=== PATIENT | male | born 1945 | race Caucasian/White ===

== ENCOUNTER 2020-02-19 13:03 | Emergency (ER) | payer MEDICARE, SELFPAY ==
--- NOTE | 2020-02-19 13:05 | ED.GENADUL_ITS ---
Discharge Plan Disposition Patient Disposition: HOME Condition: Stable Discharge Details Chief Complaint: Laceration Clinical Impression: Avulsion of skin of finger Primary Care Provider: Smitha Waite ED Provider: Tennille Courtney Home Meds and New Rx's Prescriptions: Continued levothyroxine 125 mcg tablet 125 mcg PO DAILY Qty: 90 RF: 4 simvastatin 80 mg tablet 40 mg PO QPM Qty: 45 RF: 4 Discharge Instructions Instructions: Skin Avulsion (ED) Additional Instructions: Keep wound clean and dry. Cover wound if risk of contamination. Let the skin dressing fall off naturally. Do not remove it. Follow-up with your primary care doctor in 1 week. Return to the emergency department with any worsening or new concerning symptom s. Discharge Data Discharge Physician: Tennille Courtney Medical Decision Making 74yo M w/ L 3rd fingertip avulsion with mild active oozing of blood w/o bony deformity sustained when cut while using a planer. X-ray negative for acute findings. Wound was irrigated well and soaked and covered with Surgicel and tube gauze dressing. Advised on the importance of good wound care and to let the wound heal underneath and to not remove the Surgicel and that it fell off naturally. Advised to follow up with the primary care doctor for re-evaluation. Usual and customary return precautions given prior to discharge. Medical Records Medical records reviewed: Yes I reviewed the patient's medical records. Imaging Data Radiologic Study: Radiologist's impression: XR FINGER LT MIDDLE EXAM DATE/TIME: CLINICAL HISTORY: r/o fracture vs foreign body. TECHNIQUE: 2D digital imaging was performed. COMPARISON: None. FINDINGS: BONES: No acute fracture is present. No bony destructive lesion is seen. JOINTS: No dislocation present. SOFT TISSUE: There is artifact from overlying bandage material. No radiopaque foreign bodies are identified. IMPRESSION: No evidence of acute fracture, dislocation, or foreign body. HPI General Mode of arrival: ambulatory . Date/Time Provider Initiated Documentation: 02/19/20 13:04 . Limitations to Documentation: no limitations . Information obtained by: patient . HPI Narrative: Patient is a 74-year-old male presents with left third fingertip laceration sustained when using a planer at home. Patient states the instrument was clean. Last tetanus 2011. Related Data Home Medications Medication Instructions Recorded Confirmed levothyroxine 125 mcg tablet 125 mcg PO DAILY #90 tab-cap 04/09/19 02/19/20 simvastatin 80 mg tablet 40 mg PO QPM #45 tab-cap 05/08/19 02/19/20 Previous Rx's Medication Instructions Recorded levothyroxine 125 mcg tablet 125 mcg PO DAILY #90 tab-cap 04/09/19 simvastatin 80 mg tablet 40 mg PO QPM #45 tab-cap 05/08/19 Allergies Allergy/AdvReac Type Severity Reaction Status Date / Time No Known Allergies Allergy Unverified 02/19/20 13:12 Review of Systems All systems reviewed & are unremarkable except as noted in HPI and below PFSH Medical History (Updated 02/19/20 @ 14:35 by Tennille Courtney DO) Hx of hyperlipidemia (Acute) Hypothyroidism (Chronic) Surgical History (Updated 06/27/18 @ 14:34 by [employer] [place]) Appendectomy Cholecystectomy Prostate Biopsy Family History Mother Neoplasm Father No problems noted. Brother No problems noted. Grandfather No problems noted. Grandfather No problems noted. Grandmother Personal history of malignant neoplasm Grandmother No problems noted. Brother No problems noted. Social History Smoking/Tobacco Use Status: Former Tobacco Use Drug use: Never Substance use type: does not use Do you feel safe at home: Yes Do you feel safe in your relationship?: Yes Exam Const General: cooperative, healthy appearing and no acute distress HENMT Head: normal to inspection Mouth: oral mucosae normal Eyes General: appearance normal, both eyes and all related structures Neck Neck: normal visual inspection Resp Effort & Inspection: normal respiratory effort and able to speak in complete sentences Cardio Rate: regular rate Skin General skin exam: no rashes or lesions noted Neuro General: patient alert, patient awake and patient oriented x3 Motor: muscle tone normal throughout Extrem General: capillary refill normal Left upper extremity: hand Details: normal capillary refill and normal ROM of fingers Hand/finger images: 1. 1x1cm skin avulsion through dermis with mild active oozing in center. No obvious foreign bodies or bony deformity noted. Psych Appearance: grossly normal Affect: normal affect
[2020-02-19 13:07] VITALS: BP 174/92; PULSE 105; RESP 17; TEMP 36.8; O2SAT 97
--- NOTE | 2020-02-19 13:18 | DI.RAD_ITS ---
EXAM: XR FINGER LT MIDDLE EXAM DATE/TIME: CLINICAL HISTORY: r/o fracture vs foreign body. TECHNIQUE: 2D digital imaging was performed. COMPARISON: None. FINDINGS: BONES: No acute fracture is present. No bony destructive lesion is seen. JOINTS: No dislocation present. SOFT TISSUE: There is artifact from overlying bandage material. No radiopaque foreign bodies are rory ntified. IMPRESSION: No evidence of acute fracture, dislocation, or foreign body. DATA REPOSITORY: RADIATION DOSE DELIVERED:
[2020-02-19] MEDS: Cellulose,Oxidized 2X3 PKT 1 EACH MC (14:30)
[2020-02-19] MEDS: Povidone-Iodine Soln. 118 ML BTL (14:30)
== END 2020-02-19 14:40 | disposition home or self-care (01) ==
PROVIDERS: Emergency Provider Physician Assistant; PCP Internal Medicine
DX: S61.213A Laceration without foreign body of left middle finger without damage to nail, initial encounter (principal); W31.2XXA Contact with powered woodworking and forming machines, initial encounter
CPT/HCPCS: 99283; 73140

== ENCOUNTER 2020-04-09 03:11 | Outpatient (CLI) | payer MEDICARE, SELFPAY ==
[2020-04-09 13:35] LABS: ALT 23 U/L (16-63); AST 15 U/L (15-37); Albumin 3.7 g/dL (3.4-5.0); Alkaline Phosphatase 149 U/L (46-116); BUN 31 mg/dL (7-18); Bilirubin, Total 0.3 mg/dL (0.2-1.0); CREATININE 1.53 mg/dL (0.70-1.30); Calcium 9.4 mg/dL (8.5-10.1); Calculated LDL 60 mg/dL (<100); Chloride 105 mmol/L (98-107); Cholesterol 151 mg/dL (<200); Estimated GFR 44.84 (mL/min/1.73m2); Glucose 186 mg/dL (74-106); HDL Cholesterol 31 mg/dL (40-60); Hemoglobin A1C 10.8 % (3.8-5.6); Potassium 4.4 mmol/L (3.5-5.1); Sodium 141 mmol/L (136-145); TSH 0.45 uIU/mL (0.36-3.74); Total Protein 6.6 g/dL (6.4-8.2); Triglyceride 304 mg/dL (<150)
[2020-04-09 13:51] LABS: FREE T4 1.34 ng/dL (0.76-1.46)
== END 2020-04-09 03:31 ==
PROVIDERS: PCP Nurse Practitioner Family; Visit Provider Nurse Practitioner Family
DX: E78.5 Hyperlipidemia, unspecified (principal); E03.9 Hypothyroidism, unspecified; R73.01 Impaired fasting glucose
CPT/HCPCS: 36415; 80053; 80061; 83036; 84439; 84443

== ENCOUNTER 2020-04-16 15:07 | Outpatient (REF) | payer MEDICARE, SELFPAY ==
[2020-04-17 08:26] LABS: PSA, Screening <0.1 ng/mL (0.0-6.5)
== END 2020-04-16 15:27 ==
LOC: LBN 15:07
PROVIDERS: PCP Nurse Practitioner Family; Referring Provider Nurse Practitioner Family; Visit Provider Nurse Practitioner Family
DX: Z85.46 Personal history of malignant neoplasm of prostate (principal)
CPT/HCPCS: 84153

== ENCOUNTER 2020-04-27 13:40 | Outpatient (CLI) | payer MEDICARE, SELFPAY ==
--- NOTE | 2020-04-27 12:00 | NS.NUTBLAN_ITS ---
ASSESSMENT: Conor was referred for DM education by PCP at [facility].He has new dx DM2. He had seen Timothy Mendez recently for some medication/DM pharmacology and nutrition related issues. He reports he was advised to lower his insulin to from 20u to 10u/ day and take it at night. His main concern today was difficulty using his glucometer correctly. Patient states he had chicken sandwich with one slice bread, cheese puffs, and milk for an early lunch. BG reading at today's appointment revealed 290 mg/dl ~ 1.25 hrs postprandial. He states he works at home for physical activity doing his wood working hobby and enjoys fishing and hunting. Conor will need education on self management to help with understanding his new diagnosis. He did not seem aware of CHO counting, desired ranges or the consequences of untreated DM. Noted: Conor does not have cell phone or computer to access DM support using technology at this time. Conor lives alone and will need some resources to continue learning management and INTERVENTION: Provided education on CHO counting, menu planning, desired BG ranges and take home literature to reiterate these concepts. Demonstrated technique for using his glucometer to achieve success in taking his BG levels. Provided a record keeping form and recommended F/U appointment in one month to go over BG trends and establish food and beverage routines. Suggested that he follow up with Timothy and his PCP to discuss next steps in team approach to his DM tx and management. Noted: Conor stated his brother and sister -in law are diabetic and may be able to offer support. This RD encouraged him to reach out to them for encouragement moving forward. Provided contact info for this RD regarding any food preparation or meal planning suggestions if needed. PLAN: F/U in 30 days with out patient appointment to review BG trends and continue DM education. Re-assess Conor's competencies in basic DM management and his ability to utilize his care team.
== END 2020-04-27 14:00 ==
PROVIDERS: PCP Nurse Practitioner Family; Visit Provider Dietitian, Registered
DX: E11.9 Type 2 diabetes mellitus without complications (principal); Z79.4 Long term (current) use of insulin; Z71.3 Dietary counseling and surveillance
CPT/HCPCS: 97802

== ENCOUNTER 2020-07-09 19:21 | Outpatient (REF) | payer MEDICARE, SELFPAY ==
[2020-07-09 21:25] LABS: Bilirubin Negative (Negative); Blood Negative (Negative); Clarity Clear (Clear); Glucose Negative (Negative); Ketones Negative (Negative); Leukocyte Esterase Negative (Negative); Nitrite Negative (Negative); Specific Gravity 1.025 (1.005-1.025); Urobilinogen 0.2 EU/dL (Up TO 0.2)
[2020-07-09 21:41] LABS: Anion Gap 5.6 mmol/L (3-11); BUN 29 mg/dL (7-18); CO2 28.4 mmol/L (21.0-32.0); CREATININE 1.56 mg/dL (0.70-1.30); Calcium 9.6 mg/dL (8.5-10.1); Chloride 105 mmol/L (98-107); Estimated GFR 43.85 (mL/min/1.73m2); Glucose 152 mg/dL (74-106); Potassium 4.5 mmol/L (3.5-5.1); Sodium 139 mmol/L (136-145)
[2020-07-09 21:44] LABS: COMMENT (LAB VIEW ONLY) 87.16 mg/dL; Microalb ug/mg Crea 2.2 ug/mg Cr
[2020-07-09 22:07] LABS: Hemoglobin A1C 7.3 % (<5.7)
== END 2020-07-09 19:41 ==
LOC: LBN 19:21
PROVIDERS: PCP Nurse Practitioner Family; Visit Provider Nurse Practitioner Family
DX: E11.22 Type 2 diabetes mellitus with diabetic chronic kidney disease (principal); N18.9 Chronic kidney disease, unspecified
CPT/HCPCS: 80048; 81003; 82043; 82570; 83036

== ENCOUNTER 2020-12-03 21:09 | Outpatient (REF) | payer MEDICARE, SELFPAY ==
[2020-12-03 20:27] LABS: Anion Gap 9.5 mmol/L (3-11); BUN 32 mg/dL (7-18); CO2 24.5 mmol/L (21.0-32.0); CREATININE 1.5 mg/dL (0.70-1.30); Chloride 106 mmol/L (98-107); Estimated GFR 45.75 (mL/min/1.73m2); Glucose 215 mg/dL (74-106); Potassium 4.8 mmol/L (3.5-5.1); Sodium 140 mmol/L (136-145)
== END 2020-12-03 21:10 | disposition home or self-care (01) ==
LOC: NCHCN 21:09
PROVIDERS: PCP Nurse Practitioner Family; Visit Provider Nurse Practitioner Family
DX: I10 Essential (primary) hypertension (principal)
CPT/HCPCS: 80048

== ENCOUNTER 2021-11-19 18:38 | Outpatient (REF) | payer MEDICARE, SELFPAY ==
[2021-11-19 21:39] LABS: Anion Gap 8.6 mmol/L (3-11); BUN 39 mg/dL (7-18); CO2 25.4 mmol/L (21.0-32.0); CREATININE 1.7 mg/dL (0.70-1.30); Chloride 104 mmol/L (98-107); Cholesterol 154 mg/dL (<200); Estimated GFR 39.49 (mL/min/1.73m2); Glucose 243 mg/dL (74-106); HDL Cholesterol 29 mg/dL (40-60); Potassium 5.5 mmol/L (3.5-5.1); Sodium 138 mmol/L (136-145); TSH 0.34 uIU/mL (0.36-3.74); Triglyceride 484 mg/dL (<150)
[2021-11-19 21:53] LABS: LDL CHOLESTEROL 76 mg/dL (<100)
[2021-11-19 22:11] LABS: FREE T4 1.14 ng/dL (0.76-1.46)
[2021-11-22 10:44] LABS: PSA, Screening <0.1 ng/mL (0.0-6.5)
== END 2021-11-19 18:39 | disposition home or self-care (01) ==
LOC: LBN 18:38
PROVIDERS: PCP Nurse Practitioner Family; Visit Provider Nurse Practitioner Family
DX: Z85.46 Personal history of malignant neoplasm of prostate (principal); E03.9 Hypothyroidism, unspecified; E11.9 Type 2 diabetes mellitus without complications; E78.5 Hyperlipidemia, unspecified; Z12.5 Encounter for screening for malignant neoplasm of prostate
CPT/HCPCS: 80048; 80061; 83721; 84153; 83036; 84439; 84443

== ENCOUNTER 2021-12-10 02:42 | Outpatient (CLI) | payer MEDICARE, SELFPAY ==
[2021-12-10 09:08] LABS: Anion Gap 8.8 mmol/L (3-11); BUN 33 mg/dL (7-18); CO2 27.2 mmol/L (21.0-32.0); CREATININE 1.7 mg/dL (0.70-1.30); Calcium 9.5 mg/dL (8.5-10.1); Chloride 106 mmol/L (98-107); Estimated GFR 39.49 (mL/min/1.73m2); Glucose 155 mg/dL (74-106); Potassium 4.9 mmol/L (3.5-5.1); Sodium 142 mmol/L (136-145)
== END 2021-12-10 02:43 | disposition home or self-care (01) ==
PROVIDERS: PCP Nurse Practitioner Family; Visit Provider Nurse Practitioner Family
DX: E87.5 Hyperkalemia (principal)
CPT/HCPCS: 36415; 80048; 83036

== ENCOUNTER 2022-05-12 05:06 | Outpatient (CLI) | payer MEDICARE, SELFPAY ==
[2022-05-12 13:23] LABS: Hemoglobin A1C 7.7 % (<5.7)
== END 2022-05-12 05:07 | disposition home or self-care (01) ==
LOC: LOS 05:06
PROVIDERS: PCP Nurse Practitioner Family; Visit Provider Nurse Practitioner Family
DX: E11.9 Type 2 diabetes mellitus without complications (principal)
CPT/HCPCS: 36415; 83036

== ENCOUNTER 2022-07-20 07:57 | Outpatient (CLI) | payer MEDICARE, SELFPAY ==
[2022-07-20 12:46] LABS: BUN 41 mg/dL (7-18); CREATININE 1.8 mg/dL (0.70-1.30); Calcium 9.3 mg/dL (8.5-10.1); Chloride 105 mmol/L (98-107); Estimated GFR 38.77 (mL/min/1.73m2); Glucose 171 mg/dL (74-106); Potassium 5.1 mmol/L (3.5-5.1); Sodium 137 mmol/L (136-145)
== END 2022-07-20 07:58 | disposition home or self-care (01) ==
LOC: LOS 07:57
PROVIDERS: PCP Nurse Practitioner Family; Visit Provider Nurse Practitioner Family
DX: I10 Essential (primary) hypertension (principal)
CPT/HCPCS: 36415; 80048

== ENCOUNTER 2022-09-01 02:16 | Outpatient (CLI) | payer MEDICARE, SELFPAY ==
[2022-09-01 12:50] LABS: Anion Gap 7.6 mmol/L (3-11); BUN 44 mg/dL (7-18); CO2 26.4 mmol/L (21.0-32.0); CREATININE 2.1 mg/dL (0.70-1.30); Calcium 9.4 mg/dL (8.5-10.1); Chloride 104 mmol/L (98-107); Estimated GFR 32.22 (mL/min/1.73m2); FREE T4 1.36 ng/dL (0.76-1.46); Glucose 151 mg/dL (74-106); Potassium 4.9 mmol/L (3.5-5.1); Sodium 138 mmol/L (136-145); TSH 0.37 uIU/mL (0.36-3.74)
[2022-09-01 13:10] LABS: Hemoglobin A1C 7.4 % (<5.7)
== END 2022-09-01 02:17 | disposition home or self-care (01) ==
LOC: LOS 02:16
PROVIDERS: PCP Nurse Practitioner Family; Visit Provider Nurse Practitioner Family
DX: N18.30 Chronic kidney disease, stage 3 unspecified (principal); E11.9 Type 2 diabetes mellitus without complications; E03.9 Hypothyroidism, unspecified
CPT/HCPCS: 36415; 80048; 83036; 84439; 84443

== ENCOUNTER 2022-11-07 02:56 | Outpatient (CLI) | payer MEDICARE, SELFPAY ==
[2022-11-07 12:49] LABS: Anion Gap 8.3 mmol/L (3-11); BUN 42 mg/dL (7-18); CO2 25.7 mmol/L (21.0-32.0); CREATININE 1.9 mg/dL (0.70-1.30); Calcium 9.7 mg/dL (8.5-10.1); Chloride 105 mmol/L (98-107); Estimated GFR 36.11 (mL/min/1.73m2); Glucose 163 mg/dL (74-106); Potassium 4.9 mmol/L (3.5-5.1); Sodium 139 mmol/L (136-145)
== END 2022-11-07 02:57 | disposition home or self-care (01) ==
LOC: LOS 02:56
PROVIDERS: PCP Nurse Practitioner Family; Visit Provider Nurse Practitioner Family
DX: N18.30 Chronic kidney disease, stage 3 unspecified (principal); I10 Essential (primary) hypertension; E11.9 Type 2 diabetes mellitus without complications
CPT/HCPCS: 36415; 80048

== ENCOUNTER 2023-06-22 01:02 | Outpatient (CLI) | payer MEDICARE, SELFPAY ==
[2023-06-22 13:12] LABS: ALT 16 U/L (16-63); AST 15 U/L (15-37); Albumin 3.6 g/dL (3.4-5.0); Alkaline Phosphatase 128 U/L (46-116); Anion Gap 7.5 mmol/L (3-11); BUN 47 mg/dL (7-18); Bilirubin, Total 0.4 mg/dL (0.2-1.0); CO2 25.5 mmol/L (21.0-32.0); CREATININE 1.9 mg/dL (0.70-1.30); Chloride 103 mmol/L (98-107); Estimated GFR 36.11 (mL/min/1.73m2); Glucose 161 mg/dL (74-106); Potassium 4.5 mmol/L (3.5-5.1); Sodium 136 mmol/L (136-145); TSH (W/Ref FT4) 0.54 uIU/mL (0.36-3.74); Total Protein 6.9 g/dL (6.4-8.2)
[2023-06-22 19:44] LABS: PSA, Screening <0.1 ng/mL (<=6.5)
== END 2023-06-22 01:03 | disposition home or self-care (01) ==
LOC: LOS 01:02
PROVIDERS: PCP Nurse Practitioner Family; Visit Provider Nurse Practitioner Family
DX: E11.9 Type 2 diabetes mellitus without complications (principal); Z00.00 Encounter for general adult medical examination without abnormal findings; Z12.5 Encounter for screening for malignant neoplasm of prostate
CPT/HCPCS: 36415; 80053; 84153; 84443

== ENCOUNTER 2023-06-28 13:03 | Outpatient (REF) | payer MEDICARE, SELFPAY ==
[2023-06-28 13:40] LABS: Bilirubin Negative (Negative); Blood Negative (Negative); Clarity Clear (Clear); Glucose 100 mg/dL (Negative); Ketones Negative (Negative); Leukocyte Esterase Negative (Negative); Nitrite Negative (Negative); Specific Gravity 1.015 (1.005-1.025); Urobilinogen 0.2 mg/dL (Up to 0.2); pH 5.5 (5-8)
[2023-06-28 14:32] LABS: COMMENT (LAB VIEW ONLY) 105.71 mg/dL; Microalb ug/mg Crea 3.4 ug/mg Cr
== END 2023-06-28 13:04 | disposition home or self-care (01) ==
LOC: LBN 13:03
PROVIDERS: PCP Nurse Practitioner Family; Visit Provider Nurse Practitioner Family
DX: N18.30 Chronic kidney disease, stage 3 unspecified (principal)
CPT/HCPCS: 81003; 82043; 82570

== ENCOUNTER → 2024-01-02 09:22 | Outpatient (BNVA) | payer MEDICARE, SELFPAY | PROVIDERS: PCP Nurse Practitioner Family; Referring Provider Nurse Practitioner Family; Visit Provider Podiatrist | DX: E11.42 Type 2 diabetes mellitus with diabetic polyneuropathy (principal); L60.3 Nail dystrophy; I70.203 Unspecified atherosclerosis of native arteries of extremities, bilateral legs; B35.1 Tinea unguium; G62.9 Polyneuropathy, unspecified; N18.30 Chronic kidney disease, stage 3 unspecified; M79.675 Pain in left toe(s); M79.674 Pain in right toe(s); R09.89 Other specified symptoms and signs involving the circulatory and respiratory systems; L65.9 Nonscarring hair loss, unspecified; L60.8 Other nail disorders; R23.8 Other skin changes | CPT/HCPCS: 11721 ==

== ENCOUNTER → 2024-04-30 09:35 | Outpatient (BNVA) | payer MEDICARE, SELFPAY | PROVIDERS: PCP Nurse Practitioner Family; Referring Provider Nurse Practitioner Family; Visit Provider Podiatrist | DX: E11.42 Type 2 diabetes mellitus with diabetic polyneuropathy (principal); L60.3 Nail dystrophy; I70.203 Unspecified atherosclerosis of native arteries of extremities, bilateral legs; B35.1 Tinea unguium; G62.9 Polyneuropathy, unspecified; N18.30 Chronic kidney disease, stage 3 unspecified | CPT/HCPCS: 11721 ==

== ENCOUNTER 2024-06-12 02:13 | Outpatient (CLI) | payer MEDICARE, SELFPAY ==
[2024-06-12 12:42] LABS: BUN 38 mg/dL (7-18); CREATININE 2.1 mg/dL (0.70-1.30); Calcium 9.7 mg/dL (8.5-10.1); Calculated LDL 54 mg/dL (<100); Chloride 105 mmol/L (98-107); Cholesterol 130 mg/dL (<200); Estimated GFR 31.82 (mL/min/1.73m2); Glucose 139 mg/dL (74-106); HDL Cholesterol 34 mg/dL (40-60); Potassium 4.7 mmol/L (3.5-5.1); Sodium 139 mmol/L (136-145); TSH (W/Ref FT4) 0.52 uIU/mL (0.36-3.74); Triglyceride 213 mg/dL (<150)
[2024-06-12 19:30] LABS: PSA, Screening <0.1 ng/mL (<=6.5)
== END 2024-06-12 02:14 | disposition home or self-care (01) ==
LOC: LOS 02:13
PROVIDERS: PCP Nurse Practitioner Family; Visit Provider Nurse Practitioner Family
DX: Z00.00 Encounter for general adult medical examination without abnormal findings (principal); I10 Essential (primary) hypertension; E03.9 Hypothyroidism, unspecified; K57.30 Diverticulosis of large intestine without perforation or abscess without bleeding; N18.30 Chronic kidney disease, stage 3 unspecified; Z12.5 Encounter for screening for malignant neoplasm of prostate
CPT/HCPCS: 36415; 80048; 80061; 84153; 84443

== ENCOUNTER → 2024-08-28 10:54 | Outpatient (BNVA) | payer MEDICARE, SELFPAY | PROVIDERS: PCP Nurse Practitioner Family; Referring Provider Nurse Practitioner Family; Visit Provider Podiatrist | DX: E11.42 Type 2 diabetes mellitus with diabetic polyneuropathy (principal); L60.3 Nail dystrophy; I70.203 Unspecified atherosclerosis of native arteries of extremities, bilateral legs; B35.1 Tinea unguium; N18.30 Chronic kidney disease, stage 3 unspecified; L65.9 Nonscarring hair loss, unspecified; R23.8 Other skin changes; R60.0 Localized edema; R20.8 Other disturbances of skin sensation | CPT/HCPCS: 11721 ==

== ENCOUNTER 2024-10-04 15:03 | Outpatient (REF) | payer MEDICARE, SELFPAY ==
[2024-10-04 17:33] LABS: COMMENT (LAB VIEW ONLY) 118.39 mg/dL; Microalb ug/mg Crea 2.3 ug/mg Cr
== END 2024-10-04 15:04 | disposition home or self-care (01) ==
LOC: LBN 15:03
PROVIDERS: PCP Nurse Practitioner Family; Visit Provider Nurse Practitioner Family
DX: E11.42 Type 2 diabetes mellitus with diabetic polyneuropathy (principal)
CPT/HCPCS: 82043; 82570

== ENCOUNTER → 2025-01-15 10:25 | Outpatient (BNVA) | payer MEDICARE, SELFPAY | PROVIDERS: PCP Nurse Practitioner Family; Referring Provider Nurse Practitioner Family; Visit Provider Podiatrist | DX: E11.42 Type 2 diabetes mellitus with diabetic polyneuropathy (principal); L60.3 Nail dystrophy; I70.203 Unspecified atherosclerosis of native arteries of extremities, bilateral legs; B35.1 Tinea unguium; N18.30 Chronic kidney disease, stage 3 unspecified; R09.89 Other specified symptoms and signs involving the circulatory and respiratory systems; L65.9 Nonscarring hair loss, unspecified; R23.8 Other skin changes; R20.8 Other disturbances of skin sensation; R60.0 Localized edema; L60.2 Onychogryphosis | CPT/HCPCS: 11721 ==